=== PATIENT | male | born 2000 | race Caucasian/White ===

== ENCOUNTER 2024-07-04 15:04 | Emergency (ER) | payer MEDICAID, SELFPAY ==
[2024-07-04 15:05] VITALS: BP 158/85; PULSE 94; RESP 18; TEMP 36.6; O2SAT 98
--- NOTE | 2024-07-04 15:15 | DI.RAD_ITS ---
Exam(s) XR THUMB RT EXAM: XR THUMB RT CLINICAL HISTORY: Pain at MCP joint after potential dislocation. TECHNIQUE: 2D digital imaging was performed. COMPARISON: No exams were available for comparison FINDINGS: 3 views No evidence of fracture or dislocation. No radiopaque foreign bodies. No joint space narrowing. Nelson ne density normal. No osseous lesions. IMPRESSION: No significant radiographic findings in the thumb. If clinically indicated follow-up MRI can be performed if ligament injury is suspected (such as ulnar collateral ligament tear). DATA REPOSITORY: RADIATION DOSE DELIVERED:
--- NOTE | 2024-07-04 15:19 | ED.GENADUL_ITS ---
Discharge Plan Disposition Patient Disposition: Home Condition: Good Discharge Details Chief Complaint: Orthopedic Clinical Impression: Sprain of hand, thumb, right Primary Care Provider: Unknown,Unknown ED Provider: Garrett Flowers Home Meds and New Rx's Prescriptions: No Action No Known Home Meds Discharge Instructions Instructions: Thumb Sprain ED Additional Instructions: At this time there is no evidence of large fracture on your x-ray for your thumb. However I do have concern based on the mechanism that you may have damaged the ligaments keeping your thumb in place. It is challenging to evaluate this when all the swelling is present. Because this is the thumb of your dominant hand, and because of the concern for ligamentous injury, we have placed a referral with orthopedics. They will be able to evaluate you in the next few weeks after the swelling has gone down to give a good examination and assessment for potential ligamentous injury. In the meantime please wear the thumb spica splint at all times. Please take Tylenol and Motrin as needed for pain. If you notice any worsening of your symptoms, or any new symptoms such as vomiting, diarrhea, fever, chills, shortness of breath, chest pain, numbness, weakness, or fainting , please return immediately to the emergency department for reevaluation. Please follow up with your primary care provider as soon as possible for reassessment and reevaluation. As always, it was a pleasure participating in your medical care today. Referrals: Rito Pham MD [ [facility] STAFF PHYSICIAN] - Amilcar Whittaker MD [ [facility] STAFF PHYSICIAN] - [facility] General Date/Time Provider Initiated Documentation: 07/04/24 15:09 . [facility] Narrative: 24-year-old male who is right-hand dominant who presents today for evaluation of right thumb pain. Patient states that 3 days ago he was grabbing his dog, the dog most suddenly, and it torqued his thumb out laterally, he heard a pop, and then pushed the thumb and it shot back into place. Since then he has had notable swelling in the joint and tenderness. Pain with movement. He has taken some NSAID therapy which is mildly improved the symptoms. He admits to tingling in the tip of his finger. He denies any other injuries. No other complaints at this time. Related Data Home Medications ?Medication ?Instructions ?Recorded ?Confirmed Unknown [No Known Home Meds] 12/17/24 12/17/24 Allergies Allergy/AdvReac Type Severity Reaction Status Date / Time No Known Allergies Allergy Unverified 07/04/24 15:08 General Stated Complaint: Orthopedic FELICITA: 4 Exam Narrative Exam Narrative: 1.Const: Well-nourished, Well-developed, appearing stated age 2.Eyes: PERRL, no conjunctival injection, and symmetrical lids. 3.ENT: Atraumatic external nose and ears. Moist MM. Neck: Symmetric, trachea midline, No thyromegaly. 4.CVS: +S1/S2, Peripheral pulses 2+ and equal in all extremities. Brisk capillary refill in all extremities. 5.RESP: Unlabored respiratory effort. Clear to auscultation bilaterally. No wheezes rales or rhonchi 6.GI: Soft, Nontender/Nondistended, No hepatosplenomegaly. No guarding or rebound. 7.MSK: Patient's right thumb demonstrates notable swelling around the MCP joint and the inner phalangeal joint. Significant tenderness in the proximal phalanx as well as the first metacarpal. Sensation intact. Brisk capillary refill. Patient is able to flex extend abduct and adduct the thumb, however he has significant pain with extension and adduction. 8.Skin: Warm, Dry. No rashes or lesions. 9.Neuro: metal base blocker II-XII grossly intact. Sensation grossly intact, no focal neurologic deficits. 10.Psych: (AAO) x3. Appropriate mood and affect Course Vital Signs Vital signs: Vital Signs Temperature 36.6 C 07/04/24 15:05 Pulse 94 H 07/04/24 15:05 Respiratory Rate 18 07/04/24 15:05 Blood Pressure 158/85 H 07/04/24 15:05 Pulse Oximetry 98 07/04/24 15:05 Temperature 36.6 C 07/04/24 15:05 Temperature Source Oral 07/04/24 15:05 Pulse 94 H 07/04/24 15:05 Respiratory Rate 18 07/04/24 15:05 Blood Pressure 158/85 H 07/04/24 15:05 Blood Pressure Position Sitting 07/04/24 15:05 Pulse Oximetry 98 07/04/24 15:05 Oxygen Delivery Method Room Air 07/04/24 15:05 Oxygen Flow Rate 0 07/04/24 15:05 Medical Decision Making 24-year-old male who is right-hand dominant who presents today for evaluation of right thumb pain. Patient states that 3 days ago he was grabbing his dog, the dog most suddenly, and it torqued his thumb out laterally, he heard a pop, and then pushed the thumb and it shot back into place. Since then he has had notable swelling in the joint and tenderness. Pain with movement. He has taken some NSAID therapy which is mildly improved the symptoms. He admits to tingling in the tip of his finger. He denies any other injuries. No other complaints at this time. Patient's right thumb demonstrates notable swelling around the MCP joint and the inner phalangeal joint. Significant tenderness in the proximal phalanx as well as the first metacarpal. Sensation intact. Brisk capillary refill. Patient is able to flex extend abduct and adduct the thumb, however he has significant pain with extension and adduction. Suspect skiers thumb and potential dislocation which then relocated and now has led to the swelling pain and tenderness with tendinous disruption. Will get an x-ray to evaluate for fracture. Will give Tylenol and Motrin for pain. Patient will likely need brace/splint. We will monitor closely and reassess. 3:53 PM X-ray negative for acute process. Exam challenging to evaluate for significant ligamentous laxity secondary to the pain and swelling currently present. However I do suspect a potential skiers thumb based on the exam and history. Will give a thumb spica splint for the time being. We will recommend continued NSAID therapy, and outpatient orthopedic follow-up once the swelling is gone down for further ligamentous evaluation. Patient does not have an active primary care provider at this time. Recommend continued NSAID therapy. Discussed red flags which to return. I have extensively reviewed the treatment plan and discharge instructions with the patient. I have addressed all patient concerns at this time. The patient was made aware of what symptoms to monitor for that would warrant a return to the emergency department. Discussed the plan with the patient, they demonstrate verbal understanding and agreement with our assessment and plan at this time. The documentation in this chart was dictated using [employer] dictation software. Please excuse any dictation errors. FINDINGS: 3 views No evidence of fracture or dislocation. No radiopaque foreign bodies. No joint space narrowing. Bone density normal. No osseous lesions. IMPRESSION: No significant radiographic findings in the thumb. If clinically indicated follow-up MRI can be performed if ligament injury is suspected (such as ulnar collateral ligament tear). Quality:SDOH Health Related Social Needs: 2 No Data to Display PFSH All Active Problems (Updated 07/04/24 @ 15:56 by Garrett Flowers DO) Sprain of hand, thumb, right (Acute) Social History Smoking/Tobacco Use Status: Current-Occasional Tobacco Type: cigarettes Smoking risk assessment performed?: Yes Alcohol Intake: current Alcohol Intake frequency: a few times a month Drug use: Occasionally Substance use type: marijuana Do you feel safe at home: Yes Do you feel safe in your relationship?: Yes PAWSS Have you Been Recently Intoxicated or Drunk Within the Last 30 days?: No Have you Ever Experienced Previous Episodes of Alcohol Withdrawal?: No Have you ever Experienced Withdrawal Seizures?: No Have you ever Experienced Delirium Tremens(DT)s?: No Have you ever undergone Alcohol Rehabilitation Treatment (i.e, inpt ot outpatient treatment programs)?: No Have you ever Experienced Blackouts?: No Have you ever Combined Alcohol with other Downers within the last 90 days?: No Have you ever Combined Alcohol with any other Substance of Abuse during the last 90 days?: No Positive Blood Alcohol level on Presentation? [PCS.BAL]: No Evidence of Increased Autonomic Activity (i.e. HR>120, tremor, sweating, agitation, nausea)?: No Result: 0
[2024-07-04] MEDS: Ibuprofen 800 MG TAB PO (15:22)
[2024-07-04] MEDS: Acetaminophen 500 MG TAB 1000 MG PO (15:22)
[2024-07-04 16:01] VITALS: BP 158/85; PULSE 94; RESP 18; TEMP 36.6; O2SAT 98
--- OUTSIDE RECORDS SUMMARY | 2024-07-04 16:10 | XMS_ITS | Referral Summary ---
Author Organization [facility] Address [address] [place] [address] Care Team Providers Care Experience Design Director Name Role Phone Unavailable Primary Care Provider Unavailabl e Social History Tobacco Use Types Packs/Day Years Used Date Smoking Tobacco: Never Assessed Sex and Gender Information Value Date Recorded Sex Assigned at Not on file Legal Sex Male 15:15 EST Gender Identity Not on file Sexual Orientation Not on file Plan of Treatment Not on file
--- OUTSIDE RECORDS SUMMARY | 2024-07-04 16:10 | XMS_ITS | Encounter Summary ---
Author Organization [facility] Address [address] [place] [address] Care Team Providers Care Time Clock Repairer Name Role Phone Unavailable Primary Care Provider Unavailabl e Encounter Details Date Type Department Care Team (Late st Contact Info) Description 09/21/2022 Lab Requisition [facility] Pathology & Laboratory Medicine - Main [address] [address] Outr Resulting Lab, Provider Social History Tobacco Use Types Packs/Day Years Used Date Smoking Tobacco: Never Assessed Sex and Gender Information Value Date Recorded Sex Assigned at Not on file Legal Sex Male 15:15 EST Gender Identity Not on file Sexual Orientation Not on file documented as of this encounter Plan of Treatment Not on file documented as of this encounter Procedures Procedure Name Priority Date/Time Associated Diagnosis Comments HSV (HERPES SIMPLEX VIRUS) MOLECULAR DETECTION, PCR Routine 09/21/2022 14:25 EST documented in this encounter Results * HSV (HERPES SIMPLEX VIRUS) MOLECULAR DETECTION, PCR (09/21/2022 14:25 EST) Herpes Simplex Virus Molecular Detection 1, PCR Negative Negative 09/22/2022 13:11 EST [facility] Herpes Simplex Virus Molecular Detection 2, PCR Negative Negative 09/22/2022 13:11 EST [facility] Swab ENTIRE PERINEUM / Unknown 09/21/2022 14:25 EST 09/21/2022 21:55 EST us Provider Outr Resulting Lab MICROBIOLOGY - GENER AL ORDERABLES Final Result [facility] [address] [place] [address] documented in this encounter Visit Diagnoses Not on filedocumented in this encounter
--- OUTSIDE RECORDS SUMMARY | 2024-07-04 16:10 | XMS_ITS | Clinical Summary ---
Author Organization [facility] Address [address] [place] [address] Care Team Providers Care Command Post Craftsman Name Role Phone Unavailable Primary Care Provider Unavailabl e Social History Tobacco Use Types Packs/Day Years Used Date Smoking Tobacco: Never Assessed Sex and Gender Information Value Date Recorded Sex Assigned at Not on file Legal Sex Male 15:15 EST Gender Identity Not on file Sexual Orientation Not on file Plan of Treatment Health Maintenance Due Date Last Done Comments Hepatitis C Screen 2002 Hepatitis B Vaccine (1 of 3 - 19+ 3-dose series) 01/15 COVID-19 Vaccine ( season) 2024
== END 2024-07-04 16:02 | disposition home or self-care (01) ==
LOC: ER 16:09
PROVIDERS: Emergency Provider Student in an Organized Health Care Education/Training Program
DX: S63.601A Unspecified sprain of right thumb, initial encounter (principal); Y93.K9 Activity, other involving animal care; Y92.89 Other specified places as the place of occurrence of the external cause; F17.210 Nicotine dependence, cigarettes, uncomplicated; X50.1XXA Overexertion from prolonged static or awkward postures, initial encounter
CPT/HCPCS: 99283; 73140